=== PATIENT | male | born 1995 | race African-American/Black ===

== ENCOUNTER 2017-09-04 19:27 | Emergency (ER) | payer MEDICAID ==
[~2017-09-04] VITALS: Ht 170.2 cm; Wt 71.0 kg
[2017-09-04 21:52] LABS: BASOPHILS % 0.3 % (0.0-2.0); EOSINOPHILS % 0.5 % (0.0-5.0); HEMATOCRIT. 43.3 % (42.0-52.0); HEMOGLOBIN. 14.8 g/dL (14.0-18.0); LYMPHOCYTES % 11.8 % (20.0-50.0); MEAN CORPUSCULAR HEMOGLOBIN 28.4 pg (28.0-32.0); MEAN PLATELET VOLUME 8.2 fl (7.4-10.4); MONOCYTES % 9.5 % (2.0-8.0); NEUTROPHILS % 77.9 % (40.0-76.0); PLATELET 214 x1000/uL (130-400); RED BLOOD CELL COUNT 5.21 mill/uL (4.7-6.1)
[2017-09-04 21:58] LABS: CARBON DIOXIDE 28 mEq/L (21-32); CHLORIDE 99 mEq/L (98-107)
[2017-09-04 22:01] LABS: TROPONIN I < 0.02 ng/mL (0.00-0.04)
[2017-09-04 22:46] VITALS: BP 130/73
== END 2017-09-04 23:00 | disposition home or self-care (01) ==
LOC: ER 21:01
DX: M94.0 Chondrocostal junction syndrome [Tietze] (principal)
CPT/HCPCS: 36415; 71010; 80048; 84484; 85025; 85379; 93005; 99285; Z7610